=== PATIENT | male | born 1945 | race Caucasian/White ===

== ENCOUNTER 2021-05-06 12:00 | Inpatient (IN) ==
[2021-05-06] MEDS ORDERED: IOPAMIDOL 100 ML BOTTLE IV ONE (12:01)
[2021-05-06] MEDS ORDERED: 0.9 % SODIUM CHLORIDE 1,000 ML IV ONE (12:26)
--- NOTE | 2021-05-06 12:35 | Emergency Department Note ---
HPI General Chief complaint: Fall Stated complaint: fall Time Seen by Provider: 05/06/21 12:06 Source: patient and EMS Mode of arrival: EMS History of Present Illness HPI Narrative: Narrative: This patient presents by EMS with a complaint of fall with unknown downtime. Patient was found by his daughter to be on the floor in his home. It is thought that he fell sometime in the evening last night before it got dark. Patient is not quite sure. He does not recall if he became lightheaded and fell or if he tripped on something. He does not believe he struck his head and is not complaining of any head pain or headache but is not quite sure. Based on the patient being soiled and some discoloration to pressure points on his skin EMS reports it is likely he would sit down since last night. Patient has been known to have declining health over the last couple of months per his daughter. She recently moved back to the area from [place] 3 weeks ago due to his decline. She would typically visit him every 6 months and did note a few months ago on a visit that he had lost about 20 pounds. He also did not seem to be getting around the house very well in the house had fallen into a bit of clutter. She moved closer to help take care of him. She is not sure if he has prescription on occasion or if he has been taking them. She did look through the house with EMS but was unable to find any. She has not previously accompanied him to doctors visits due to living out of the area but is now available to do so, however he has not had any appointments. Patient has been resistant to discussions regarding assistance within the home or assisted living. Related Data Home Medications Medication Instructions Recorded Confirmed acetaminophen 500 mg tablet 500 mg PO .as needed tab 06/02/19 09/26/20 aspirin 81 mg tablet,delayed 81 mg PO QDAY 06/02/19 09/26/20 release Previous Rx's Medication Instructions Recorded chlorthalidone 25 mg tablet 12.5 mg PO QDAY #30 tab 08/29/20 atorvastatin 40 mg tablet 40 mg PO QDAY #30 tab 11/07/20 clopidogrel 75 mg tablet 75 mg PO QDAY #30 tab 11/07/20 lisinopril 20 mg tablet 20 mg PO QDAY #30 tab 12/07/20 Allergies Allergy/AdvReac Type Severity Reaction Status Date / Time No Known Drug Allergies Allergy Verified 12/07/20 09:48 Review of Systems ROS ROS Narrative: Narrative: Pertinent positives and negatives as noted in HPI. All other systems reviewed and negative. [facility] Narrative Patient History Narrative: Narrative: Medical/Surgical/Family History All Active Problems (Updated 05/06/21 @ 19:42 by Hayde Red PA-C) GABE (acute kidney injury) (Acute) Acute hypernatremia (Acute) Pleural effusion (Acute) Renal insufficiency (Acute) History of endarterectomy (Chronic ~2009) History of elbow surgery (Chronic) History of shoulder surgery (Chronic) CVA (cerebral vascular accident) (Chronic) Alcohol abuse (Chronic) Smoker (Chronic) Hypertension (Chronic) Hyperlipidemia (Chronic) Cardiac murmur (Chronic) Bbtiy-Shljcdcug-Tdozh (WPW) pattern (Chronic) Abdominal aortic aneurysm (Chronic) Anemia (Chronic) Thrombocytopenia (Chronic) Coronary artery disease (Chronic) Vitamin B 12 deficiency (Chronic) Calcified nodule (Chronic) Medical History (Updated 05/06/21 @ 19:42 by Hayde Red PA-C) Abdominal aortic aneurysm Alcohol abuse Anemia Calcified nodule Very mild manifestation of a calcified nodule that has embolized into this middle cerebral artery on the right side. It is partially occluding his anterior temporal artery, but not occlusive in his M2 vessels. Cardiac murmur Coronary artery disease CVA (cerebral vascular accident) Hyperlipidemia Hypertension Smoker Thrombocytopenia Vitamin B 12 deficiency Enasq-Tjnkyngls-Vqrhl (WPW) pattern Surgical History History of elbow surgery History of endarterectomy (~2009) Right History of shoulder surgery Right Family History Mother , Age 50 No problems noted. Father , Age 70 No problems noted. Social History Smoking Status: Current every day smoker Alcohol Intake Frequency: former alcohol drinker Substance Use: does not use Exam Narrative Narrative: Narrative: Vital signs noted General: mild distress. Cachectic. Skin: Warm. Dry. No rash. Normal color. Abrasions noted to the right shoulder and right hip with contusion. Contusion noted over the coccyx without abrasion or tissue breakdown. Eyes: PERRL. EOMI. Mouth: Membranes dry. Neck: Tenderness to palpation without obvious step-off or crepitus. Cardiovascular: Irregularly irregular rate with systolic murmur noted over the right superior chest wall. Generalized tenderness to palpation of the ribs and the chest. No crepitus or subcutaneous emphysema. Respiratory: No respiratory distress. Breath sounds equal. No wheezing/rales/rhonchi. Gastrointestinal: Abdomen firm. Diffuse tenderness. No distention. Hypoactive bowel sounds. Back: Normal inspection. Variable midline tenderness throughout the thoracic and lumbar spine. No step-offs or crepitus. There are contusions over the thoracic back without abrasions. Extremities: Various abrasions and pressure sores. Extremities are soiled with dirt and animal hair. Neurological: No focal neurological deficits observed. CN 2-12 intact. Alert. Oriented to person and place. Patient's baseline is typically without recall for date or year per his daughter. Course Course Course Narrative: IV established by EMS. Patient is medicated with normal saline for dehydration Labs ordered and reviewed Sodium is elevated and there is decreased renal function. Troponin is also elevated but is trending down from 0.05-0.04 this is likely secondary to GABE. CT of the brain without contrast is consistent with chronic changes with multiple infarcts. There are no acute changes noted. Cervical spine CT without contrast is without acute changes. CT of the chest, abdomen and pelvis with contrast is reported by radiology significant for bilateral pleural effusions with the right worse than the left. These do not appear to be secondary to trauma, more consistent with transudates. No additional acute findings are noted. Initially the patient is very resistant to staying in the emergency department o r being admitted to the hospital. After some time he does agree to come into the hospital for treatment of his hyponatremia, dehydration and monitoring of his pleural effusions. Patient discussed with the hospitalist service and is excepted. Vital Signs Vital signs: Vital Signs Temperature 98.1 F 05/06/21 12:00 Pulse Rate 84 05/06/21 12:00 Respiratory Rate 16 05/06/21 12:00 Blood Pressure 127/83 05/06/21 12:00 Pulse Oximetry (%) 96 05/06/21 12:00 Temperature 98.1 F 05/06/21 12:00 Pulse Rate 79 05/06/21 18:01 Respiratory Rate 15 05/06/21 18:46 Blood Pressure 137/98 05/06/21 19:01 Pulse Oximetry (%) 99 05/06/21 18:01 MDM MDM Narrative Medical decision making narrative: Narrative: Lab Data Result diagrams: 05/06/21 12:26 05/06/21 12:26 Labs: Lab Results 05/06/21 05/06/21 05/06/21 Range/Units 12:26 12:26 12:26 WBC 10.4 (4.5-11.0) K/mcL RBC 3.78 L (4.50-5.90) M/mcL Hgb 9.1 L (13.5-16.5) g/dL Hct 30.0 L (41.0-55.0) % POC Hct 30 L (41-55) % MCV 79.4 L (80.0-100.0) fL MCH 24.1 L (26.0-34.0) pg MCHC 30.3 L (31.0-36.0) g/dL RDW 20.8 H (11.5-14.5) % Plt Count 125 L (140-440) K/mcL MPV 11.4 H (7.4-10.4) fL Neut % (Auto) 86.3 H (38.0-78.0) % Lymph % (Auto) 8.6 L (15.0-49.0) % [place] % (Auto) 5.0 (1.0-12.0) % Eos % (Auto) 0 (0.0-7.0) % Baso % (Auto) 0.1 (0.0-2.0) % Lymph # (Auto) 0.89 L (1.50-4.80) K/mcL [place] # (Auto) 0.52 (0.10-0.90) K/mcL Eos # (Auto) 0 (0.00-0.70) K/mcL Baso # (Auto) 0.01 (0.00-0.20) K/mcL Absolute Neutrophils 8.97 H (1.80-8.00) K/mcL PT 22.1 H (11.9-14.5) sec INR 1.8 H (0.9-1.1) VBG Lactic Acid (0.5-2.0) mmol/L POC Sodium 150 H (133-145) mEq/L Sodium 149 H (133-145) mmol/L POC Potassium 4.0 (3.3-5.1) mEql/L Potassium 4.1 (3.3-5.1) mmol/L POC Chloride 120 H (96-108) mEq/L Chloride 113 H (96-108) mmol/L Carbon Dioxide 15 L (22-30) mmol/L POC Total CO2 16 L (22-30) mmol/L Anion Gap 21.0 H (8.0-16.0) POC BUN 63 H (6-20) mg/dL BUN 61 H (8-23) mg/dL Creatinine 1.7 H (0.7-1.2) mg/dL POC Creatinine 1.9 H (0.6-1.2) mg/dL GFR Calculation 39 Glucose 117 H (70-105) mg/dL POC Glucose 121 H (70-105) mg/dL Calcium 8.6 (8.6-10.4) mg/dL POC WB Ioniz Calcium 1.09 L (1.16-1.32) mmEq/L Total Bilirubin 1.7 H (0.1-1.0) mg/dL AST 140 H (<40) U/L ALT 198 H (<40) U/L Alkaline Phosphatase 89 (39-117) U/L Total Creatine Kinase (24-195) U/L CK-MB (CK-2) (<6.7) ng/mL Troponin T (<0.03) ng/mL Total Protein 5.8 L (5.9-8.4) gm/dL Albumin 3.8 (3.2-5.2) gm/dL Globulin 2.0 L (2.2-3.7) gm/dL Albumin/Globulin Ratio 1.9 (1.0-2.3) 05/06/21 05/06/21 05/06/21 Range/Units 12:26 12:26 12:26 WBC (4.5-11.0) K/mcL RBC (4.50-5.90) M/mcL Hgb (13.5-16.5) g/dL Hct (41.0-55.0) % POC Hct (41-55) % MCV (80.0-100.0) fL MCH (26.0-34.0) pg MCHC (31.0-36.0) g/dL RDW (11.5-14.5) % Plt Count (140-440) K/mcL MPV (7.4-10.4) fL Neut % (Auto) (38.0-78.0) % Lymph % (Auto) (15.0-49.0) % [place] % (Auto) (1.0-12.0) % Eos % (Auto) (0.0-7.0) % Baso % (Auto) (0.0-2.0) % Lymph # (Auto) (1.50-4.80) K/mcL [place] # (Auto) (0.10-0.90) K/mcL Eos # (Auto) (0.00-0.70) K/mcL Baso # (Auto) (0.00-0.20) K/mcL Absolute Neutrophils (1.80-8.00) K/mcL PT (11.9-14.5) sec INR (0.9-1.1) VBG Lactic Acid 2.4 H (0.5-2.0) mmol/L POC Sodium (133-145) mEq/L Sodium (133-145) mmol/L POC Potassium (3.3-5.1) mEql/L Potassium (3.3-5.1) mmol/L POC Chloride (96-108) mEq/L Chloride (96-108) mmol/L Carbon Dioxide (22-30) mmol/L POC Total CO2 (22-30) mmol/L Anion Gap (8.0-16.0) POC BUN (6-20) mg/dL BUN (8-23) mg/dL Creatinine (0.7-1.2) mg/dL POC Creatinine (0.6-1.2) mg/dL GFR Calculation Glucose (70-105) mg/dL POC Glucose (70-105) mg/dL Calcium (8.6-10.4) mg/dL POC WB Ioniz Calcium (1.16-1.32) mmEq/L Total Bilirubin (0.1-1.0) mg/dL AST (<40) U/L ALT (<40) U/L Alkaline Phosphatase (39-117) U/L Total Creatine Kinase 1737 H (24-195) U/L CK-MB (CK-2) 17.5 H (<6.7) ng/mL Troponin T 0.05 H* (<0.03) ng/mL Total Protein (5.9-8.4) gm/dL Albumin (3.2-5.2) gm/dL Globulin (2.2-3.7) gm/dL Albumin/Globulin Ratio (1.0-2.3) 05/06/21 05/06/21 Range/Units 16:19 17:58 WBC (4.5-11.0) K/mcL RBC (4.50-5.90) M/mcL Hgb (13.5-16.5) g/dL Hct (41.0-55.0) % POC Hct 32 L (41-55) % MCV (80.0-100.0) fL MCH (26.0-34.0) pg MCHC (31.0-36.0) g/dL RDW (11.5-14.5) % Plt Count (140-440) K/mcL MPV (7.4-10.4) fL Neut % (Auto) (38.0-78.0) % Lymph % (Auto) (15.0-49.0) % [place] % (Auto) (1.0-12.0) % Eos % (Auto) (0.0-7.0) % Baso % (Auto) (0.0-2.0) % Lymph # (Auto) (1.50-4.80) K/mcL [place] # (Auto) (0.10-0.90) K/mcL Eos # (Auto) (0.00-0.70) K/mcL Baso # (Auto) (0.00-0.20) K/mcL Absolute Neutrophils (1.80-8.00) K/mcL PT (11.9-14.5) sec INR (0.9-1.1) VBG Lactic Acid (0.5-2.0) mmol/L POC Sodium 150 H (133-145) mEq/L Sodium (133-145) mmol/L POC Potassium 3.7 (3.3-5.1) mEql/L Potassium (3.3-5.1) mmol/L POC Chloride 120 H (96-108) mEq/L Chloride (96-108) mmol/L Carbon Dioxide (22-30) mmol/L POC Total CO2 16 L (22-30) mmol/L Anion Gap (8.0-16.0) POC BUN 56 H (6-20) mg/dL BUN (8-23) mg/dL Creatinine (0.7-1.2) mg/dL POC Creatinine 1.7 H (0.6-1.2) mg/dL GFR Calculation Glucose (70-105) mg/dL POC Glucose 111 H (70-105) mg/dL Calcium (8.6-10.4) mg/dL POC WB Ioniz Calcium 1.08 L (1.16-1.32) mmEq/L Total Bilirubin (0.1-1.0) mg/dL AST (<40) U/L ALT (<40) U/L Alkaline Phosphatase (39-117) U/L Total Creatine Kinase (24-195) U/L CK-MB (CK-2) (<6.7) ng/mL Troponin T 0.04 H* (<0.03) ng/mL Total Protein (5.9-8.4) gm/dL Albumin (3.2-5.2) gm/dL Globulin (2.2-3.7) gm/dL Albumin/Globulin Ratio (1.0-2.3) ED POC Tests ED POC Tests: LORI - SARS Antigen Negative Discharge Plan Patient/Caregiver Discharge Instructions Pt seen by INSULATION MECHANIC/PA only: Yes Clinical Impression: GABE (acute kidney injury), Acute hypernatremia, Pleural effusion Patient Disposition: Xfer As Inpt ([facility]) Discharge Date/Time: 05/06/21 19:04
[2021-05-06 13:52] LABS: Basophils # (Auto) 0.01 K/mcL (0.00-0.20); Basophils % (Auto) 0.1 % (0.0-2.0); Eosinophils # (Auto) 0 K/mcL (0.00-0.70); Eosinophils % (Auto) 0 % (0.0-7.0); Hemoglobin 9.1 g/dL (13.5-16.5); Lymphocytes # (Auto) 0.89 K/mcL (1.50-4.80); Lymphocytes % (Auto) 8.6 % (15.0-49.0); Mean Cell Volume 79.4 fL (80.0-100.0); Mean Corpuscular HGB Conc 30.3 g/dL (31.0-36.0); Mean Platelet Volume 11.4 fL (7.4-10.4); Monocytes # (Auto) 0.52 K/mcL (0.10-0.90); Neutrophils % (Auto) 86.3 % (38.0-78.0); Platelet Count 125 K/mcL (140-440); RBC 3.78 M/mcL (4.50-5.90); Red Cell Distribution Width 20.8 % (11.5-14.5); WBC 10.4 K/mcL (4.5-11.0)
[2021-05-06 14:00] LABS: POC Blood Urea Nitrogen 63 mg/dL (6-20); POC CO2 16 mmol/L (22-30); POC Calcium, Ionized 1.09 mmEq/L (1.16-1.32); POC Chloride 120 mEq/L (96-108); POC Creatinine 1.9 mg/dL (0.6-1.2); POC Glucose, Random 121 mg/dL (70-105); POC Hematocrit 30 % (41-55); POC Sodium 150 mEq/L (133-145)
[2021-05-06 14:07] LABS: ALT/SGPT 198 U/L (<40); AST/SGOT 140 U/L (<40); Albumin 3.8 gm/dL (3.2-5.2); Albumin/Globulin Ratio 1.9 (1.0-2.3); Alkaline Phosphatase 89 U/L (39-117); Bilirubin,Total 1.7 mg/dL (0.1-1.0); Blood Urea Nitrogen 61 mg/dL (8-23); Calcium 8.6 mg/dL (8.6-10.4); Carbon Dioxide 15 mmol/L (22-30); Chloride 113 mmol/L (96-108); Glomerular Filtration Rate 39; Glucose 117 mg/dL (70-105); INR 1.8 (0.9-1.1); Prothrombin Time 22.1 sec (11.9-14.5)
[2021-05-06] MEDS ORDERED: fentaNYL 100 MCG/2 ML VIAL IV ONE (15:01)
--- NOTE | 2021-05-06 15:13 | Cat Scan Report ---
CLINICAL INFORMATION: Acute mental status change COMPARISON: None. TECHNIQUE: 2.5 mm helical slices were obtained in the skull base to vertex. Following reconstruction, axial reformatted images were reviewed at bone and parenchymal windows. The exam was performed using radiation dose optimization techniques including, but not limited to, automated exposure control, adjustment of the mA and/or kV according to patient size and use of iterative reconstruction technique. FINDINGS: The ventricles, sulci, fissures, and cisterns are symmetrically enlarged compatible with moderate atrophy-more than expected for age.. No extra-axial fluid collections are identified. Moderate patchy chronic ischemic changes in the cerebral white matter are also slightly more than expected for age. 9 mm remote lacunar infarct is seen in the left caudate nucleus-deep left frontal white matter. A few punctate remote lacunar infarcts seen in the basal ganglia. There is no evidence of hemorrhage, mass effect, or edema. Bone windows show no osseous abnormality. IMPRESSION: Moderate atrophy with chronic ischemic changes in the peripheral white matter slightly more than is typical for this age group. 9 mm lacunar infarct in the deep left frontal white matter/caudate nucleus region. Few punctate remote lacunar infarcts in the basal ganglia regions. No intracerebral hemorrhage or other acute finding. Moderate cerumen the left external auditory canal Interpreted and Authenticated by: Miki Dickerson 05/06/21
[2021-05-06 16:06] LABS: Creatine Kinase MB 17.5 ng/mL (<6.7)
--- NOTE | 2021-05-06 16:19 | Cat Scan Report ---
CLINICAL INFORMATION: Trauma-fall COMPARISON: None. TECHNIQUE: 0.625 mm helical slices were obtained from the skull base through the superior T2 end plate, and following reconstruction, 2.5 mm sagittal, coronal and axial reformations were then processed. The exam was reviewed at bone and soft tissue windows. The exam was performed using radiation dose optimization techniques including, but not limited to, automated exposure control, adjustment of the mA and/or kV according to patient size and use of iterative reconstruction technique. FINDINGS: 3 mm of C7 anterior subluxation due to degenerative facet disease noted. The remaining spine is normal in curvature and alignment. No fracture identified. The cervical cord is normal in contour and caliber without hemorrhage or other abnormality. Heavy atherosclerotic calcification seen in the left carotid bifurcation. Soft tissues otherwise normal. The C2-3 disc level is normal. At C3-4, mild broad disc spur complex minimally impinges the anterior thecal sac At C4-5, moderate broad disc spur complex and facet arthropathy result in mild central canal narrowing. The IV foramen are normal width At C5-6, mild broad disc spur complex left-sided asymmetry results in mild left IV foraminal narrowing and mild central canal narrowing. Mild bilateral facet arthropathy noted. At C6-7, mild broad disc spur complex left-sided asymmetry results in mild left IV foraminal and central canal canal doses. There is mild facet arthropathy. At C7-T1, mild broad disc protrusion and grade 1 spondylolisthesis results in moderate bilateral IV foraminal narrowing. There is slight impingement of the exiting exiting C8 nerve roots. IMPRESSION: 1. No fracture or other acute posttraumatic change. 2. Multilevel degeneration-as described. 3. Heavy calcification in the left carotid bifurcation. Suggest carotid Doppler study to evaluate for stenosis Interpreted and Authenticated by: Miki Dickerson 05/06/21
--- NOTE | 2021-05-06 16:33 | Cat Scan Report ---
CLINICAL INFORMATION: Trauma COMPARISON: None. TECHNIQUE: Enteric contrast was utilized. 80 cc of Isovue-370 were injected intravenously, and 50 seconds later 2.5 mm helical slices were obtained from the lung apices through the subtrochanteric regions of the femurs. Following reconstruction, 2.5 mm sagittal, coronal and axial reformatted images were processed and reviewed at multiple windows and levels. 7 mm MIP reconstructions were obtained through the lungs to optimize nodule detection.The exam was performed using radiation dose optimization techniques including, but not limited to, automated exposure control, adjustment of the mA and/or kV according to patient size and use of iterative reconstruction technique. FINDINGS: Pulmonary parenchymal windows show moderate simple right pleural effusion. No evidence of hemorrhage. There is subsegmental compressive atelectasis of the posterior right upper, middle and lower lobes. Small left pleural effusion noted. The lungs are, otherwise, clear. No pneumothorax following trauma. The mediastinal windows show the heart is moderately enlarged with heavy calcific plaque in the coronary arteries. The thoracic aorta is normal diameter with diffuse intimal thickening. There is no mediastinal hemorrhage or air following trauma. The central pulmonary arteries are markedly enlarged: the main pulmonary diameter is 4.4 cm compatible pulmonary hypertension. There is no adenopathy in the mediastinal, hilar or axillary regions. The esophagus is grossly normal. Abdominal images show a few tiny stones layering dependently within the gallbladder body. Gallbladder and bile ducts are, otherwise, normal: CBD is 5 mm. The liver, spleen, both adrenal glands are normal in size configuration and attenuation without focal lesion. Nonobstructing stones are seen in the calyces of both kidneys: 6 mm mid calyx right kidney, two stones inferior calyces the right kidney less than 2 mm and 8mm nonobstructing stone within an inferior calyx of the left kidney. No obstructing stone or hydronephrosis. Both kidneys are lower limits of normal in size the right is 9 cm in length and the left is 9.4 cm in length. Aortobiiliac endovascular graft successfully stents a 5 cm diameter fusiform infrarenal abdominal aortic aneurysm. The aneurysm is thrombosed around the graft as expected. No evidence of endoleak. Stents in both renal arteries are difficult to assess due to beam hardening artifact from the metal struts.. The kidneys are perfused hence they are at least partially patent. Pelvic images show prostate, seminal vesicles urinary bladder are normal. The stomach, small large bowel are grossly normal. Bone windows show no fractures or other osseous abnormality IMPRESSION: 1. No acute posttraumatic change throughout the chest, abdomen or pelvis. 2. Moderate right and small left simple pleural effusions. Right pleural effusion results in subsegmental compressive atelectasis of the posterior right lower middle and lower lobes. These are related to trauma and likely represent residua from a prior episode of CHF. There is no peripheral vascular congestion or edema to suggest active CHF 3. Marked enlargement of the central pulmonary arteries compatible pulmonary hypertension. Etiology is unknown. It may reflect cor pulmonale. 4. Abdominal biiliac endovascular graft successfully stented a thrombosed infrarenal abdominal aortic aneurysm. No evidence of graft endoleak. 5. Nonobstructing stones within the calyces of both kidneys, but no evidence of obstructing stone or hydronephrosis. Both kidneys of the lower limits of normal in size. 6. Cholelithiasis. Gallbladder and bile ducts otherwise normal. Interpreted and Authenticated by: Miki Dickerson 05/06/21
[2021-05-06] MEDS ORDERED: DEXTROSE 5% IN WATER 1,000 ML IV SCH (17:45)
--- NOTE | 2021-05-06 18:00 | Internal Med History&Physical ---
HPI History of Present Illness Patient information: Note initiated : 05/06/21 at 5:51 pm Service Date, if different from initiated Date: [] Patient: Francis Tracey a 76 y/o M admitted on for fall. Chief Complaint: [] History of present illness: Mr. Tracey is a 76 year old M Patient found down at home on the floor by his daughter today 1030. It is thought that he been lying on the floor since last night. He was last seen by his neighbor on the por at 7 PM. He does not recall falling the surrounding events did not feel ill recently feels in his normal state of health. Does not recall passing out or tripping or anything like that. Given the ED showed normal white blood cell count with a hemoglobin of 9.1. Platelets mildly low at 125. Chemistry showed a sodium of 149 chloride 113 bicarb of 15. BUN 61 creatinine 1.7. INR 1.8. No known history of liver disease although is used to drink quite a bit. CPK was elevated and lactate mildly elevated. Transaminitis mild. CT brain showed old infarcts. Patient lives alone. Per daughter he has lost weight and been declining over the last several months. He has moved from [place] recently to help care for him given his decline. He does not recall if he has been taking his medications or not and likely has not been taking per daughter. Review of Systems: Pertinent positives as above. Denies headache/fever/chills/nausea/vomiting/chest or abdominal pain/cough/dyspnea/diarrhea. Many 10 point review of system reviewed negative PFSH PFSH All Active Problems Renal insufficiency (Acute) History of endarterectomy (Chronic ~2009) History of elbow surgery (Chronic) History of shoulder surgery (Chronic) CVA (cerebral vascular accident) (Chronic) Alcohol abuse (Chronic) Smoker (Chronic) Hypertension (Chronic) Hyperlipidemia (Chronic) Cardiac murmur (Chronic) Nxzas-Gyflovjdu-Suyjy (WPW) pattern (Chronic) Abdominal aortic aneurysm (Chronic) Anemia (Chronic) Thrombocytopenia (Chronic) Coronary artery disease (Chronic) Vitamin B 12 deficiency (Chronic) Calcified nodule (Chronic) Medical History Abdominal aortic aneurysm Alcohol abuse Anemia Calcified nodule Very mild manifestation of a calcified nodule that has embolized into this middle cerebral artery on the right side. It is partially occluding his anterior temporal artery, but not occlusive in his M2 vessels. Cardiac murmur Coronary artery disease CVA (cerebral vascular accident) Hyperlipidemia Hypertension Smoker Thrombocytopenia Vitamin B 12 deficiency Mekuu-Esxfqoafo-Rzfvi (WPW) pattern Surgical History History of elbow surgery History of endarterectomy (~2009) Right History of shoulder surgery Right Family History Mother , Age 50 No problems noted. Father , Age 70 No problems noted. Social History (Updated 05/06/21 @ 18:03 by Etienne Machado DO) marital status: alcohol intake frequency: former alcohol drinker substance use type: does not use additional history: Smokes 1 pack/day MEDS/ALLERGIES Home Medications and Allergies Home Medications Medication Instructions Recorded Confirmed Type acetaminophen 500 mg tablet 500 mg PO .as needed tab 06/02/19 09/26/20 History aspirin 81 mg tablet,delayed 81 mg PO QDAY 06/02/19 09/26/20 History release chlorthalidone 25 mg tablet 12.5 mg PO QDAY #30 tab 08/29/20 09/26/20 Rx atorvastatin 40 mg tablet 40 mg PO QDAY #30 tab 11/07/20 Rx clopidogrel 75 mg tablet 75 mg PO QDAY #30 tab 11/07/20 Rx lisinopril 20 mg tablet 20 mg PO QDAY #30 tab 12/07/20 Rx Allergies Allergy/AdvReac Type Severity Reaction Status Date / Time No Known Drug Allergies Allergy Verified 09/26/20 09:48 EXAM Constitutional Vitals: Temp Pulse Resp BP Pulse Ox 98.1 F 77 20 136/87 96 05/06/21 12:00 05/06/21 15:31 05/06/21 17:46 05/06/21 17:46 05/06/21 15:31 Exam: General: Alert, Awake, No acute Distress, disheveled, cachectic Eyes/N/T: EOMI, PERRL, dry MM Head/Neck: neck supple, normocephalic atraumatic CV: RRR, 3/6 SM , normal s1/s2 Pulm: Clear b/l, no wheezing/rhonchi/rales Abd: soft, nontender, +BS x4 Ext: no clubbing/cyanosis/edema Neuro: Alert, no focal deficits, moves all extremities, CN 2-12 grossly intact, symmetrical strength b/l upper/lower, sensations intact b/l upper/lower Skin: warm/dry DATA Data Completed and Pending Labs: Labs from last 24 hours 05/06/21 05/06/21 05/06/21 16:19 12:26 12:26 WBC RBC Hgb Hct POC Hct MCV MCH MCHC RDW Plt Count MPV Neut % (Auto) Lymph % (Auto) Dade % (Auto) Eos % (Auto) Baso % (Auto) Lymph # (Auto) Dade # (Auto) Eos # (Auto) Baso # (Auto) Absolute Neutrophils PT INR VBG Lactic Acid POC Sodium Sodium POC Potassium Potassium POC Chloride Chloride Carbon Dioxide POC Total CO2 Anion Gap POC BUN BUN Creatinine POC Creatinine GFR Calculation Glucose POC Glucose Calcium POC WB Ioniz Calcium Total Bilirubin AST ALT Alkaline Phosphatase Total Creatine Kinase 1737 H CK-MB (CK-2) 17.5 H Troponin T 0.04 H* 0.05 H* Total Protein Albumin Globulin Albumin/Globulin Ratio 05/06/21 05/06/21 05/06/21 12:26 12:26 12:26 WBC RBC Hgb Hct POC Hct 30 L MCV MCH MCHC RDW Plt Count MPV Neut % (Auto) Lymph % (Auto) Dade % (Auto) Eos % (Auto) Baso % (Auto) Lymph # (Auto) Dade # (Auto) Eos # (Auto) Baso # (Auto) Absolute Neutrophils PT 22.1 H INR 1.8 H VBG Lactic Acid 2.4 H POC Sodium 150 H Sodium 149 H POC Potassium 4.0 Potassium 4.1 POC Chloride 120 H Chloride 113 H Carbon Dioxide 15 L POC Total CO2 16 L Anion Gap 21.0 H POC BUN 63 H BUN 61 H Creatinine 1.7 H POC Creatinine 1.9 H GFR Calculation 39 Glucose 117 H POC Glucose 121 H Calcium 8.6 POC WB Ioniz Calcium 1.09 L Total Bilirubin 1.7 H AST 140 H ALT 198 H Alkaline Phosphatase 89 Total Creatine Kinase CK-MB (CK-2) Troponin T Total Protein 5.8 L Albumin 3.8 Globulin 2.0 L Albumin/Globulin Ratio 1.9 05/06/21 12:26 WBC 10.4 RBC 3.78 L Hgb 9.1 L Hct 30.0 L POC Hct MCV 79.4 L MCH 24.1 L MCHC 30.3 L RDW 20.8 H Plt Count 125 L MPV 11.4 H Neut % (Auto) 86.3 H Lymph % (Auto) 8.6 L Dade % (Auto) 5.0 Eos % (Auto) 0 Baso % (Auto) 0.1 Lymph # (Auto) 0.89 L Dade # (Auto) 0.52 Eos # (Auto) 0 Baso # (Auto) 0.01 Absolute Neutrophils 8.97 H PT INR VBG Lactic Acid POC Sodium Sodium POC Potassium Potassium POC Chloride Chloride Carbon Dioxide POC Total CO2 Anion Gap POC BUN BUN Creatinine POC Creatinine GFR Calculation Glucose POC Glucose Calcium POC WB Ioniz Calcium Total Bilirubin AST ALT Alkaline Phosphatase Total Creatine Kinase CK-MB (CK-2) Troponin T Total Protein Albumin Globulin Albumin/Globulin Ratio A/P Narrative A/P Narrative: A: *Fall/generalized weakness/deconditioning/self-care deficits: *Dehydration w/Hypernatremia: *Rhabdomyolysis: 2/2 fall and downtime *GABE on CKD: 2/2 above *Med acidosis: 2/2 above *Transaminitis, mild: *?liver dz suspected: h/o etoh abuse, thrombocytopenia/elevated INR/hyperbilirubinemia *PVD: Supposed to be on aspirin/statin/Plavix *h/o CVA, no residual deficits per patient: *Tobacco abuse: *HTN: supposed to be on Lisinopril and chlorthalidone * P: -D5W, f/u sodium -monitor uop/renal fxn -pending UA pH -liver u/s -clarify home meds -Smoking cessation counseling -PT/OT -CM for placement -ppx: lovenox Time Spent With Patient Time: Total time spent is greater than 50% in coordination of care (as documented) at patient's floor/unit and/or counseling patient:
[2021-05-06 18:06] LABS: POC Blood Urea Nitrogen 56 mg/dL (6-20); POC CO2 16 mmol/L (22-30); POC Calcium, Ionized 1.08 mmEq/L (1.16-1.32); POC Chloride 120 mEq/L (96-108); POC Creatinine 1.7 mg/dL (0.6-1.2); POC Glucose, Random 111 mg/dL (70-105); POC Hematocrit 32 % (41-55); POC Potassium 3.7 mEql/L (3.3-5.1); POC Sodium 150 mEq/L (133-145)
[2021-05-06] MEDS ORDERED: IPRATROPIUM/ALBUTEROL 3 ML AMPUL.NEB NEB PRN (19:06)
[2021-05-06] MEDS ORDERED: ACETAMINOPHEN 325 MG TABLET PO PRN (19:06)
[2021-05-06] MEDS ORDERED: POLYETHYLENE GLYCOL 3350 17 GM PACKET PO PRN (19:06)
[2021-05-06] MEDS ORDERED: POTASSIUM CHLORIDE 20 MEQ TABLET PO PRN ×2 (19:06)
[2021-05-06] MEDS ORDERED: ONDANSETRON 4 MG/2 ML VIAL IV PRN (19:06)
[2021-05-06] MEDS ORDERED: MAGNESIUM SULFATE 2 GM/50 ML BAG IV PRN (19:06)
[2021-05-06] MEDS ORDERED: POTASSIUM CHLORIDE 40 MEQ in DEXTROSE 5% IN WATER 500 ML IV PRN (19:06)
[2021-05-06] MEDS ORDERED: SENNOSIDES 1 TABLET PO PRN (19:06)
[2021-05-06] MEDS ORDERED: LABETALOL 5 MG/ML ML IV PRN (19:45)
[2021-05-06] MEDS: DEXTROSE 5% IN WATER 1,000 ML IV SCH (19:59)
[2021-05-06] MEDS: ATORVASTATIN 40 MG TABLET PO SCH (20:29)
[2021-05-06] MEDS: CLOPIDOGREL 75 MG TABLET PO SCH (20:29)
[2021-05-06] MEDS: 0.9 % SODIUM CHLORIDE 10 ML SYRINGE IV SCH (20:29)
[2021-05-06] MEDS: DOCUSATE SODIUM 100 MG CAPSULE PO SCH (20:29)
[2021-05-06 21:24] LABS: POC Calcium, Ionized 1.09 mmEq/L (1.16-1.32); POC Creatinine 1.7 mg/dL (0.6-1.2)
[2021-05-06 21:38] LABS: Appearance,Urine CLEAR (Clear); Bilirubin,Urine Negative (Negative); Color,Urine AMBER; Culture Indicated,Urine No; Glucose,Urine (UA) Negative (Negative); Ketones,Urine 5 mg/dL (Negative); Leukocyte Esterase,Urine Negative /ug (Negative); Mucus,Urine MOD /hpf; Nitrate,Urine Negative (Negative); Protein,Urine 30 mg/dL (Negative); Specific Gravity,Urine 1.045 (1.000-1.035); Urine Blood 0.03 mg/dL (Negative); Urine RBC 0 /hpf (0-3); Urine Squamous Epithelial Cell < 1 /hpf (0-4); Urine WBC 2 /hpf (0-4)
--- NOTE | 2021-05-06 22:11 | EKG ---
[facility] Test Date: 2021-05-06 Pat Name: Francis Tracey Department: ED Room: Gender: Male Pre Billing Specialist: : [id number] Requested By: Hayde Red Order Number: [id number] Reading MD: Regino Rivera M.D. Measurements Intervals [place] Rate: 82 P: 76 NV: 151 QRS: 58 QRSD: 96 T: 266 QT: 384 QTc: 449 Interpretive Statements SINUS RHYTHM PROBABLE LEFT VENTRICULAR HYPERTROPHY ABNORMAL T, CONSIDER ISCHEMIA, DIFFUSE LEADS NO PRIOR TRACING FOR COMPARISON ABNORMAL ECG Electronically Signed On 05-06-2021 22:11:16 PDT by Regino Rivera M.D. /store/[email or web address]/[id number]
[2021-05-07] MEDS: DEXTROSE 5% IN WATER 1,000 ML IV SCH (03:16)
[2021-05-07] MEDS: 0.9 % SODIUM CHLORIDE 10 ML SYRINGE IV SCH ×3 (04:28→21:06)
[2021-05-07 07:34] LABS: Basophils # (Auto) 0.01 K/mcL (0.00-0.20); Basophils % (Auto) 0.1 % (0.0-2.0); Eosinophils # (Auto) 0.03 K/mcL (0.00-0.70); Eosinophils % (Auto) 0.3 % (0.0-7.0); Hematocrit 30.6 % (41.0-55.0); Hemoglobin 8.9 g/dL (13.5-16.5); Lymphocytes % (Auto) 11.3 % (15.0-49.0); Mean Cell Volume 83.4 fL (80.0-100.0); Mean Corpuscular HGB Conc 29.1 g/dL (31.0-36.0); Monocytes # (Auto) 0.57 K/mcL (0.10-0.90); Monocytes % (Auto) 5.9 % (1.0-12.0); Neutrophils % (Auto) 82.4 % (38.0-78.0); Platelet Count 100 K/mcL (140-440); RBC 3.67 M/mcL (4.50-5.90); WBC 9.7 K/mcL (4.5-11.0)
[2021-05-07 07:40] LABS: ALT/SGPT 144 U/L (<40); AST/SGOT 79 U/L (<40); Albumin/Globulin Ratio 1.4 (1.0-2.3); Alkaline Phosphatase 76 U/L (39-117); Bilirubin,Direct 0.8 mg/dL (<0.3); Bilirubin,Total 1.4 mg/dL (0.1-1.0); Blood Urea Nitrogen 55 mg/dL (8-23); Carbon Dioxide 17 mmol/L (22-30); Chloride 111 mmol/L (96-108); Globulin 2.2 gm/dL (2.2-3.7); Glomerular Filtration Rate 54; Glucose 169 mg/dL (70-105); Lactate Dehydrogenase 362 U/L (135-225); Phosphorous 2.8 mg/dL (2.5-4.5); Triglycerides 114 mg/dL (<150); Uric Acid 11.2 mg/dL (2.5-8.0)
--- NOTE | 2021-05-07 08:23 | Internal Med Progress Note ---
SUBJECTIVE Subjective Patient information: Note initiated : 05/07/21 at 8:20 am Service Date, if different from initiated Date: [] Patient: Francis Tracey a 76 y/o M admitted on 05/06/21 for fall. Chief Complaint: [] Interval history: History of present illness: Mr. Tracey is a 76 year old M Patient found down at home on the floor by his daughter today 1030. It is thought that he been lying on the floor since last night. He was last seen by his neighbor on the porch at 7 PM. He does not recall falling the surrounding events did not feel ill recently feels in his normal state of health. Does not recall passing out or tripping or anything like that. Given the ED showed normal white blood cell count with a hemoglobin of 9.1. Platelets mildly low at 125. Chemistry showed a sodium of 149 chloride 113 bicarb of 15. BUN 61 creatinine 1.7. INR 1.8. No known history of liver disease although is used to drink quite a bit. CPK was elevated and lactate mildly elevated. Transaminitis mild. CT brain showed old infarcts. Patient lives alone. Per daughter he has lost weight and been declining over the last several months. He has moved from [place] recently to help care for him given his decline. He does not recall if he has been taking his medications or not and likely has not been taking per daughter. 05/07 No overnight event or new complaints. Patient feeling all right. Sodium improved creatinine improved. Review of Systems: denies headache/fever/chills/nausea/vomiting/chest or abdominal pain/cough/dyspnea/diarrhea. Otherwise see above. Constitutional Vitals: Vital Signs Temp Pulse Resp BP Pulse Ox 97 F 60 16 103/51 100 05/07/21 07:49 05/07/21 07:49 05/07/21 07:49 05/07/21 07:49 05/07/21 07:49 Period Temp Pulse Resp BP Sys/Rene Pulse Ox Last 24 Hr 96.5 F-98.1 F 60-92 11-26 103-146/51-98 93-100 Intake and Output 05/06/21 05/07/21 05/07/21 21:59 05:59 13:59 Intake Total 131 1200 1869 Output Total 250 250 Balance -284 501 2938 Weight 48.943 kg Intake & Output: Intake & Output 05/06/21 05/07/21 05/07/21 21:59 05:59 13:59 Intake Total 131 1200 1869 Output Total 250 250 Balance -675 671 0772 Weight 48.943 kg Intake: IV 131 1000 1869 Dextrose 5% in Water 1,000 ml @ 131 1000 1869 125 mls/hr IV .Q8H DAYSI Rx#: [id number] Oral 200 0 Output: Void Amount 250 250 Other: Urine Appearance Clear Urine Color Dark Valentine Dark Valentine # Bowel Movements 0 Exam: General: Alert, Awake, No acute Distress, disheveled, cachectic Eyes/N/T: EOMI, Head/Neck: neck supple, CV: RRR, 3/6 SM , Pulm: Clear b/l, no wheezing/rhonchi/rales Abd: soft, nontender, +BS x4 Ext: no clubbing/cyanosis/edema Neuro: Alert, no focal deficits, moves all extremities, Skin: warm/dry OBJ DATA Labs CBC & Chem 7: 05/07/21 06:36 05/07/21 06:36 Labs: Abnormal Lab Results 05/07/21 05/07/21 05/06/21 06:36 06:36 21:10 RBC 3.67 L Hgb 8.9 L Hct 30.6 L POC Hct 32 L MCV MCH 24.3 L MCHC 29.1 L RDW 21.0 H Plt Count 100 L MPV Neut % (Auto) 82.4 H Lymph % (Auto) 11.3 L Lymph # (Auto) 1.10 L Absolute Neutrophils 8.01 H PT INR VBG Lactic Acid POC Sodium 149 H Sodium POC Chloride 117 H Chloride 111 H Carbon Dioxide 17 L POC Total CO2 16 L Anion Gap POC BUN 57 H BUN 55 H Creatinine 1.3 H POC Creatinine 1.7 H Glucose 169 H POC Glucose 162 H Uric Acid 11.2 H Calcium 8.0 L POC WB Ioniz Calcium 1.09 L Total Bilirubin 1.4 H Direct Bilirubin 0.8 H AST 79 H ALT 144 H Lactate Dehydrogenase 362 H Total Creatine Kinase CK-MB (CK-2) Troponin T Total Protein 5.2 L Albumin 3.0 L Globulin Urine Protein Urine Ketones Urine Urobilinogen Urine Mucus 05/06/21 05/06/21 05/06/21 20:21 17:58 16:19 RBC Hgb Hct POC Hct 32 L MCV MCH MCHC RDW Plt Count MPV Neut % (Auto) Lymph % (Auto) Lymph # (Auto) Absolute Neutrophils PT INR VBG Lactic Acid POC Sodium 150 H Sodium POC Chloride 120 H Chloride Carbon Dioxide POC Total CO2 16 L Anion Gap POC BUN 56 H BUN Creatinine POC Creatinine 1.7 H Glucose POC Glucose 111 H Uric Acid Calcium POC WB Ioniz Calcium 1.08 L Total Bilirubin Direct Bilirubin AST ALT Lactate Dehydrogenase Total Creatine Kinase CK-MB (CK-2) Troponin T 0.04 H* Total Protein Albumin Globulin Urine Protein 30 A Urine Ketones 5 A Urine Urobilinogen 4.0 A Urine Mucus Mod A 05/06/21 05/06/21 05/06/21 12:26 12:26 12:26 RBC Hgb Hct POC Hct MCV MCH MCHC RDW Plt Count MPV Neut % (Auto) Lymph % (Auto) Lymph # (Auto) Absolute Neutrophils PT INR VBG Lactic Acid 2.4 H POC Sodium Sodium POC Chloride Chloride Carbon Dioxide POC Total CO2 Anion Gap POC BUN BUN Creatinine POC Creatinine Glucose POC Glucose Uric Acid Calcium POC WB Ioniz Calcium Total Bilirubin Direct Bilirubin AST ALT Lactate Dehydrogenase Total Creatine Kinase 1737 H CK-MB (CK-2) 17.5 H Troponin T 0.05 H* Total Protein Albumin Globulin Urine Protein Urine Ketones Urine Urobilinogen Urine Mucus 05/06/21 05/06/21 05/06/21 12:26 12:26 12:26 RBC 3.78 L Hgb 9.1 L Hct 30.0 L POC Hct 30 L MCV 79.4 L MCH 24.1 L MCHC 30.3 L RDW 20.8 H Plt Count 125 L MPV 11.4 H Neut % (Auto) 86.3 H Lymph % (Auto) 8.6 L Lymph # (Auto) 0.89 L Absolute Neutrophils 8.97 H PT 22.1 H INR 1.8 H VBG Lactic Acid POC Sodium 150 H Sodium 149 H POC Chloride 120 H Chloride 113 H Carbon Dioxide 15 L POC Total CO2 16 L Anion Gap 21.0 H POC BUN 63 H BUN 61 H Creatinine 1.7 H POC Creatinine 1.9 H Glucose 117 H POC Glucose 121 H Uric Acid Calcium POC WB Ioniz Calcium 1.09 L Total Bilirubin 1.7 H Direct Bilirubin AST 140 H ALT 198 H Lactate Dehydrogenase Total Creatine Kinase CK-MB (CK-2) Troponin T Total Protein 5.8 L Albumin Globulin 2.0 L Urine Protein Urine Ketones Urine Urobilinogen Urine Mucus Meds: Medications Acetaminophen (Acetaminophen 325 Mg Tablet) 650 mg PO Q6HP PRN PRN Reason: PAIN/FEVER > 101 Albuterol/Ipratropium (Ipratropium/Albuterol 3 Ml Ampul.Neb) 3 ml NEB Q4HP PRN PRN Reason: Shortness Of Breath Atorvastatin Calcium (Atorvastatin 40 Mg Tablet) 40 mg PO HS [facility] Last Admin: 05/06/21 20:29 Dose: 40 mg Documented by: Clopidogrel Bisulfate (Clopidogrel 75 Mg Tablet) 75 mg PO DAILY [facility] Last Admin: 05/06/21 20:29 Dose: 75 mg Documented by: Docusate Sodium (Docusate Sodium 100 Mg Capsule) 100 mg PO BID [facility] Last Admin: 05/06/21 20:29 Dose: 100 mg Documented by: Enoxaparin Sodium (Enoxaparin 30 Mg/0.3 Ml Syringe) 30 mg SQ DAILY [facility] Dextrose (Dextrose 5% In Water) 1,000 mls @ 125 mls/hr IV .Q8H [facility] Stop: 05/07/21 09:44 Last Infusion: 05/07/21 06:33 Dose: Infused Documented by: Potassium Chloride 40 meq/ (Dextrose) 520 mls @ 130 mls/hr IV UD PRN PRN Reason: Potassium < 3 Magnesium Sulfate (Magnesium Sulfate) 2 gm in 50 mls @ 50 mls/hr IV UD PRN PRN Reason: Magnesium </= 1.6 Labetalol HCl (Labetalol 5 Mg/Ml Ml) 0 mg IV Q2HP PRN PRN Reason: Hypertension Ondansetron HCl (Ondansetron 4 Mg/2 Ml Vial) 4 mg IV Q4HP PRN PRN Reason: Nausea And Vomiting Polyethylene Glycol (Polyethylene Glycol 3350 17 Gm Packet) 17 gm PO DAILYP PRN PRN Reason: Constipation Potassium Chloride (Potassium Chloride 20 Meq Tablet) 40 meq PO UD PRN PRN Reason: Potssium is 3-3.5 Potassium Chloride (Potassium Chloride 20 Meq Tablet) 40 meq PO UD PRN PRN Reason: Potassium < 3 Senna (Sennosides 1 Tablet) 2 tab PO DAILYP PRN PRN Reason: Constipation Sodium Chloride (0.9 % Sodium Chloride 10 Ml Syringe) 10 ml IV Q8 [facility] Last Admin: 05/07/21 04:28 Dose: Not Given Documented by: A/P Narrative A/P Narrative: A: *Fall/generalized weakness/deconditioning/self-care deficits: *Dehydration w/Hypernatremia: -improved *Rhabdomyolysis: 2/2 fall and downtime -improving *GABE on CKD: 2/2 above -Improving *Med acidosis: 2/2 above -improving *Transaminitis, mild: improving *?liver dz suspected: h/o etoh abuse, thrombocytopenia/elevated INR/hyperbilirubinemia *PVD: Supposed to be on aspirin/statin/Plavix *h/o CVA, no residual deficits per patient: *suspect some cognitive impairment from previous CVA's/etoh *Tobacco abuse: *HTN: supposed to be on Lisinopril and chlorthalidone * P: -IVF -monitor uop/renal fxn -pending UA pH -echo, chest u/s for potential pleural fluid diagnostic eval -liver u/s -clarify home meds, cont plavix/statin while awaiting meds clarify -Smoking cessation counseling -PT/OT -CM for placement -ppx: lovenox Time Spent With Patient Time: Total time spent is greater than 50% in coordination of care (as documented) at patient's floor/unit and/or counseling patient: QUALITY VTE Deep Vein Thrombosis/Pulmonary Embolism Present on Admission: No
[2021-05-07] MEDS ORDERED: SODIUM BICARBONATE VIAL 150 MEQ in DEXTROSE 5% IN WATER 850 ML IV SCH (09:00)
[2021-05-07] MEDS: DOCUSATE SODIUM 100 MG CAPSULE PO SCH ×2 (10:22→21:40)
[2021-05-07] MEDS: ENOXAPARIN 30 MG/0.3 ML SYRINGE SQ SCH (10:22)
[2021-05-07] MEDS: CLOPIDOGREL 75 MG TABLET PO SCH (10:22)
--- NOTE | 2021-05-07 12:49 | Discharge Summary ---
Discharge Provider Provider Patient information: Note initiated : 05/07/21 at 12:45 pm Service Date, if different from initiated Date: [] Patient: Francis Tracey 76 y/o M admitted on 05/06/21 for fall. Chief Complaint: [] Date of admission: 05/06/21 19:04 Discharge date: 05/08/21 Primary care physician: THAD Khan Consults: 05/06/21 Consult to Physician [CONS] Stat Comment: Consulting Provider: Etienne Machado Reason For Exam: Physician to Consult Discharge Meds Discharge Medications Home Medications acetaminophen 500 mg tablet 500 mg PO .as needed tab 06/02/19 [History Confirmed 05/07/21 Last Taken Unknown] aspirin 81 mg tablet,delayed release 81 mg PO QDAY 06/02/19 [History Confirmed 05/07/21 Last Taken Unknown] atorvastatin 40 mg tablet 40 mg PO QDAY #30 tab 11/07/20 [Rx Confirmed 05/07/21 Last Taken Unknown] clopidogrel 75 mg tablet 75 mg PO QDAY #30 tab 11/07/20 [Rx Confirmed 05/07/21 Last Taken Unknown] lisinopril 10 mg PO QDAY #30 tab 05/07/21 [Rx Last Taken Unknown] COURSE Hospital Course Hospital course: Interval history: History of present illness: Mr. Tracey is a 76 year old M Patient found down at home on the floor by his daughter today 1030. It is thought that he been lying on the floor since last night. He was last seen [facility] at 7 PM. He does not recall falling the surrounding events did not feel ill recently feels in his normal state of health. Does not recall passing out or tripping or anything like that. Given the ED showed normal white blood cell count with a hemoglobin of 9.1. Platelets mildly low at 125. Chemistry showed a sodium of 149 chloride 113 bicarb of 15. BUN 61 creatinine 1.7. INR 1.8. No known history of liver disease although is used to drink quite a bit. CPK was elevated and lactate mildly elevated. Transaminitis mild. CT brain showed old infarcts. Patient lives alone. Per daughter he has lost weight and been declining over the last several months. He has moved from [place] recently to help care for him given his decline. He does not recall if he has been taking his medications or not and likely has not been taking per daughter. 05/07 No overnight event or new complaints. Patient feeling all right. Sodium improved creatinine improved. 05/08 Patient/family refused half-way facility, patient will go home with daughter. Patient at high risk for readmission given comorbidities and decline of late and medication noncompliance A: *Fall/generalized weakness/deconditioning/self-care deficits: *Dehydration w/Hypernatremia: -resolved *Rhabdomyolysis: 2/2 fall and downtime -improving *GABE on CKD: 2/2 above -Improved *Med acidosis: 2/2 above -improving *Transaminitis, mild: improving -liver u/s with fatty liver *?liver dz suspected: h/o etoh abuse, thrombocytopenia/elevated INR/hyperbilirubinemia *PVD: Supposed to be on aspirin/statin/Plavix *h/o CVA, no residual deficits per patient: *Dementia and likely from previous CVA's/etoh -CT brain with moderate atrophy and chronic ischemic changes and old infarcts *Tobacco abuse: *HTN: supposed to be on Lisinopril and chlorthalidone * Discharge diagnosis: Fall generalized weakness deconditioning self-care deficits dehydration hyp Secondary discharge diagnosis: Dehydration with hyponatremia rhabdomyolysis acute on chronic kidney disease metabolic acidosis transaminitis likely liver disease peripheral vascular disease history of stroke suspect some cognitive impairment from strokes and alcohol use tobacco abuse hypertension Time Spent with Patient Time attestation: Total time spent providing and/or coordinating discharge services: Time spent: Greater than 30 minutes EXAM Constitutional Vitals: Temp Pulse Resp BP Pulse Ox 97.6 F 68 18 110/56 99 05/07/21 11:14 05/07/21 11:14 05/07/21 11:14 05/07/21 11:14 05/07/21 11:14 Discharge Data Data Completed and Pending Labs on day of discharge: Labs from last 24 hours 05/07/21 05/07/21 05/07/21 06:36 06:36 06:36 WBC 9.7 RBC 3.67 L Hgb 8.9 L Hct 30.6 L POC Hct MCV 83.4 MCH 24.3 L MCHC 29.1 L RDW 21.0 H Plt Count 100 L MPV Neut % (Auto) 82.4 H Lymph % (Auto) 11.3 L Bacon % (Auto) 5.9 Eos % (Auto) 0.3 Baso % (Auto) 0.1 Lymph # (Auto) 1.10 L Bacon # (Auto) 0.57 Eos # (Auto) 0.03 Baso # (Auto) 0.01 Absolute Neutrophils 8.01 H PT INR VBG Lactic Acid POC Sodium Sodium 140 POC Potassium Potassium 3.7 POC Chloride Chloride 111 H Carbon Dioxide 17 L POC Total CO2 Anion Gap 12.0 POC BUN BUN 55 H Creatinine 1.3 H POC Creatinine GFR Calculation 54 Glucose 169 H POC Glucose Uric Acid 11.2 H Calcium 8.0 L POC WB Ioniz Calcium Phosphorus 2.8 Magnesium 2.2 Total Bilirubin 1.4 H Direct Bilirubin 0.8 H GGT 21 AST 79 H ALT 144 H Alkaline Phosphatase 76 Lactate Dehydrogenase 362 H Total Creatine Kinase 1432 H CK-MB (CK-2) Troponin T Total Protein 5.2 L Albumin 3.0 L Globulin 2.2 Albumin/Globulin Ratio 1.4 Triglycerides 114 Urine Color Urine Appearance Urine pH Ur Specific [place] Urine Protein Urine Glucose (UA) Urine Ketones Urine Occult Blood Urine Nitrate Urine Bilirubin Urine Urobilinogen Ur Leukocyte Esterase Urine RBC Urine WBC Ur Squamous Epith Cells Urine Bacteria Urine Mucus Ur Culture Indicated? 05/06/21 05/06/21 05/06/21 21:10 20:21 17:58 WBC RBC Hgb Hct POC Hct 32 L 32 L MCV MCH MCHC RDW Plt Count MPV Neut % (Auto) Lymph % (Auto) Bacon % (Auto) Eos % (Auto) Baso % (Auto) Lymph # (Auto) Bacon # (Auto) Eos # (Auto) Baso # (Auto) Absolute Neutrophils PT INR VBG Lactic Acid POC Sodium 149 H 150 H Sodium POC Potassium 4.0 3.7 Potassium POC Chloride 117 H 120 H Chloride Carbon Dioxide POC Total CO2 16 L 16 L Anion Gap POC BUN 57 H 56 H BUN Creatinine POC Creatinine 1.7 H 1.7 H GFR Calculation Glucose POC Glucose 162 H 111 H Uric Acid Calcium POC WB Ioniz Calcium 1.09 L 1.08 L Phosphorus Magnesium Total Bilirubin Direct Bilirubin GGT AST ALT Alkaline Phosphatase Lactate Dehydrogenase Total Creatine Kinase CK-MB (CK-2) Troponin T Total Protein Albumin Globulin Albumin/Globulin Ratio Triglycerides Urine Color Valentine Urine Appearance Clear Urine pH 5.0 Ur Specific [place] 1.045 Urine Protein 30 A Urine Glucose (UA) Negative Urine Ketones 5 A Urine Occult Blood 0.03 Urine Nitrate Negative Urine Bilirubin Negative Urine Urobilinogen 4.0 A Ur Leukocyte Esterase Negative Urine RBC 0 Urine WBC 2 Ur Squamous Epith Cells < 1 Urine Bacteria None Urine Mucus Mod A Ur Culture Indicated? No 05/06/21 05/06/21 05/06/21 16:19 12:26 12:26 WBC RBC Hgb Hct POC Hct MCV MCH MCHC RDW Plt Count MPV Neut % (Auto) Lymph % (Auto) Bacon % (Auto) Eos % (Auto) Baso % (Auto) Lymph # (Auto) Bacon # (Auto) Eos # (Auto) Baso # (Auto) Absolute Neutrophils PT INR VBG Lactic Acid POC Sodium Sodium POC Potassium Potassium POC Chloride Chloride Carbon Dioxide POC Total CO2 Anion Gap POC BUN BUN Creatinine POC Creatinine GFR Calculation Glucose POC Glucose Uric Acid Calcium POC WB Ioniz Calcium Phosphorus Magnesium Total Bilirubin Direct Bilirubin GGT AST ALT Alkaline Phosphatase Lactate Dehydrogenase Total Creatine Kinase 1737 H CK-MB (CK-2) 17.5 H Troponin T 0.04 H* 0.05 H* Total Protein Albumin Globulin Albumin/Globulin Ratio Triglycerides Urine Color Urine Appearance Urine pH Ur Specific [place] Urine Protein Urine Glucose (UA) Urine Ketones Urine Occult Blood Urine Nitrate Urine Bilirubin Urine Urobilinogen Ur Leukocyte Esterase Urine RBC Urine WBC Ur Squamous Epith Cells Urine Bacteria Urine Mucus Ur Culture Indicated? 05/06/21 05/06/21 05/06/21 12:26 12:26 12:26 WBC RBC Hgb Hct POC Hct 30 L MCV MCH MCHC RDW Plt Count MPV Neut % (Auto) Lymph % (Auto) Bacon % (Auto) Eos % (Auto) Baso % (Auto) Lymph # (Auto) Bacon # (Auto) Eos # (Auto) Baso # (Auto) Absolute Neutrophils PT 22.1 H INR 1.8 H VBG Lactic Acid 2.4 H POC Sodium 150 H Sodium 149 H POC Potassium 4.0 Potassium 4.1 POC Chloride 120 H Chloride 113 H Carbon Dioxide 15 L POC Total CO2 16 L Anion Gap 21.0 H POC BUN 63 H BUN 61 H Creatinine 1.7 H POC Creatinine 1.9 H GFR Calculation 39 Glucose 117 H POC Glucose 121 H Uric Acid Calcium 8.6 POC WB Ioniz Calcium 1.09 L Phosphorus Magnesium Total Bilirubin 1.7 H Direct Bilirubin GGT AST 140 H ALT 198 H Alkaline Phosphatase 89 Lactate Dehydrogenase Total Creatine Kinase CK-MB (CK-2) Troponin T Total Protein 5.8 L Albumin 3.8 Globulin 2.0 L Albumin/Globulin Ratio 1.9 Triglycerides Urine Color Urine Appearance Urine pH Ur Specific [place] Urine Protein Urine Glucose (UA) Urine Ketones Urine Occult Blood Urine Nitrate Urine Bilirubin Urine Urobilinogen Ur Leukocyte Esterase Urine RBC Urine WBC Ur Squamous Epith Cells Urine Bacteria Urine Mucus Ur Culture Indicated? 05/06/21 12:26 WBC 10.4 RBC 3.78 L Hgb 9.1 L Hct 30.0 L POC Hct MCV 79.4 L MCH 24.1 L MCHC 30.3 L RDW 20.8 H Plt Count 125 L MPV 11.4 H Neut % (Auto) 86.3 H Lymph % (Auto) 8.6 L Bacon % (Auto) 5.0 Eos % (Auto) 0 Baso % (Auto) 0.1 Lymph # (Auto) 0.89 L Bacon # (Auto) 0.52 Eos # (Auto) 0 Baso # (Auto) 0.01 Absolute Neutrophils 8.97 H PT INR VBG Lactic Acid POC Sodium Sodium POC Potassium Potassium POC Chloride Chloride Carbon Dioxide POC Total CO2 Anion Gap POC BUN BUN Creatinine POC Creatinine GFR Calculation Glucose POC Glucose Uric Acid Calcium POC WB Ioniz Calcium Phosphorus Magnesium Total Bilirubin Direct Bilirubin GGT AST ALT Alkaline Phosphatase Lactate Dehydrogenase Total Creatine Kinase CK-MB (CK-2) Troponin T Total Protein Albumin Globulin Albumin/Globulin Ratio Triglycerides Urine Color Urine Appearance Urine pH Ur Specific [place] Urine Protein Urine Glucose (UA) Urine Ketones Urine Occult Blood Urine Nitrate Urine Bilirubin Urine Urobilinogen Ur Leukocyte Esterase Urine RBC Urine WBC Ur Squamous Epith Cells Urine Bacteria Urine Mucus Ur Culture Indicated? Discharge Plan Patient/Caregiver Discharge Instructions Activity: increase activity as tolerated Diet: Cardiac Activity Restrictions/Additional Instructions: Referral to see GI for liver disease work-up, suspected cirrhosis vs fatty liver Prescriptions: Continued atorvastatin 40 mg tablet 40 mg PO QDAY Qty: 30 RF: 3 clopidogrel 75 mg tablet 75 mg PO QDAY Qty: 30 RF: 3 aspirin [Adult Low Dose Aspirin] 81 mg tablet,delayed release (DR/EC) 81 mg PO QDAY RF: 0 acetaminophen [Tylenol Extra Strength] 500 mg tablet 500 mg PO .as needed RF: 0 Changed lisinopril 20 mg tablet 10 mg PO QDAY Qty: 30 RF: 2 Follow Up Plan Follow up with: Loetscher,Thalia A, CLINICAL EDUCATION COORDINATOR [Primary Care Provider] - Patient Disposition: Home Health Service Prognosis: Undetermined Overall status at discharge: patient is progressing back to baseline Discharge Orders: Discharge Order (Routine); Ordered 05/08/21 Ordered By: Etienne Machado [facility] VTE Deep Vein Thrombosis/Pulmonary Embolism Present on Admission: No
--- NOTE | 2021-05-07 15:04 | Ultrasound Report ---
CLINICAL INFORMATION: transaminitis, h/o etoh COMPARISON: None. FINDINGS: Liver is slightly decreased in size 13.5 cm in maximal dimension. Echotexture is heterogeneous elevated compatible fatty change or other diffuse hepatocellular process. No focal hepatic lesion appreciated. There is a 1 cm sludge ball in the the gallbladder. Gallbladder is otherwise normal-no evidence of wall thickening. Common bile duct is normal-3 mm. Pancreas unremarkable. IMPRESSION: 1 cm sludge ball in the gallbladder. The gallbladder is otherwise normal Hyperechoic inhomogeneous liver compatible with fatty change or other diffuse hepatocellular process Interpreted and Authenticated by: Miki Dickerson 05/07/21
--- NOTE | 2021-05-07 15:05 | Ultrasound Report ---
CLINICAL INFORMATION: evalauate size for potential diagnostic thorac COMPARISON: None. FINDINGS: Moderate right and small left pleural effusions are both anechoic simple effusions.. IMPRESSION: Moderate right and small left pleural effusions-simple Interpreted and Authenticated by: Miki Dickerson 05/07/21
[2021-05-07] MEDS ORDERED: OLANZapine 10 MG VIAL IM SCH (18:45)
[2021-05-07] MEDS ORDERED: OLANZapine 5 MG TABLET PO ONE ×2 (18:45→19:14)
[2021-05-07] MEDS ORDERED: OLANZapine 10 MG VIAL IM ONE (19:30)
[2021-05-07] MEDS ORDERED: HALOPERIDOL LACTATE 5 MG/ML VIAL IM ONE (21:27)
[2021-05-07] MEDS ORDERED: HALOPERIDOL LACTATE 5 MG/ML VIAL ONE (21:32)
[2021-05-07] MEDS: ATORVASTATIN 40 MG TABLET PO SCH (21:40)
[2021-05-08] MEDS: 0.9 % SODIUM CHLORIDE 10 ML SYRINGE IV SCH (04:46)
[2021-05-08 07:21] LABS: ALT/SGPT 137 U/L (<40); AST/SGOT 78 U/L (<40); Albumin 3.4 gm/dL (3.2-5.2); Albumin/Globulin Ratio 1.6 (1.0-2.3); Alkaline Phosphatase 89 U/L (39-117); Bilirubin,Direct 0.9 mg/dL (<0.3); Bilirubin,Total 1.8 mg/dL (0.1-1.0); Blood Urea Nitrogen 46 mg/dL (8-23); Calcium 8.4 mg/dL (8.6-10.4); Carbon Dioxide 21 mmol/L (22-30); Chloride 107 mmol/L (96-108); Globulin 2.1 gm/dL (2.2-3.7); Glomerular Filtration Rate 66; Glucose 99 mg/dL (70-105); Lactate Dehydrogenase 408 U/L (135-225); Phosphorous 2.2 mg/dL (2.5-4.5); Triglycerides 114 mg/dL (<150); Uric Acid 10.2 mg/dL (2.5-8.0)
[2021-05-08 07:22] LABS: Creatine Kinase 1359 U/L (24-195)
--- NOTE | 2021-05-08 08:14 | Internal Med Progress Note ---
SUBJECTIVE Subjective Patient information: Note initiated : 05/08/21 at 8:09 am Service Date, if different from initiated Date: [] Patient: Francis Tracey a 76 y/o M admitted on 05/06/21 for fall. Chief Complaint: [] Interval history: History of present illness: Mr. Tracey is a 76 year old M Patient found down at home on the floor by his daughter today 1030. It is thought that he been lying on the floor since last night. He was last seen by his neighbor on the porch at 7 PM. He does not recall falling the surrounding events did not feel ill recently feels in his normal state of health. Does not recall passing out or tripping or anything like that. Given the ED showed normal white blood cell count with a hemoglobin of 9.1. Platelets mildly low at 125. Chemistry showed a sodium of 149 chloride 113 bicarb of 15. BUN 61 creatinine 1.7. INR 1.8. No known history of liver disease although is used to drink quite a bit. CPK was elevated and lactate mildly elevated. Transaminitis mild. CT brain showed old infarcts. Patient lives alone. Per daughter he has lost weight and been declining over the last several months. He has moved from [place] recently to help care for him given his decline. He does not recall if he has been taking his medications or not and likely has not been taking per daughter. 05/07 No overnight event or new complaints. Patient feeling all right. Sodium improved creatinine improved. 05/08 Appears to be sundowning at night. Calm in bed currently. No complaints. Review of Systems: denies headache/fever/chills/nausea/vomiting/chest or abdominal pain/cough/dyspnea/diarrhea. Otherwise see above. Constitutional Vitals: Vital Signs Temp Pulse Resp BP Pulse Ox 97.7 F 101 H 20 122/62 100 05/08/21 07:00 05/08/21 07:00 05/08/21 07:00 05/08/21 07:00 05/08/21 07:00 Period Temp Pulse Resp BP Sys/Rene Pulse Ox Last 24 Hr 97.4 F-97.7 F 62-101 16-20 98-131/46-68 96-100 Intake and Output 05/07/21 05/08/21 05/08/21 21:59 05:59 13:59 Intake Total 1000 200 Balance 1000 200 Weight 48.489 kg Intake & Output: Intake & Output 05/07/21 05/08/21 05/08/21 21:59 05:59 13:59 Intake Total 1000 200 Balance 1000 200 Weight 48.489 kg Intake: IV 1000 Sodium Bicarbonate Vial 150 Meq 1000 In Dextrose 5% in Water 850 ml @ 100 mls/hr IV Q20H DAYSI Rx#: [id number] Oral 0 200 Other: # Voids 3 Exam: General: Alert, Awake, No acute Distress, , cachectic Eyes/N/T: EOMI, Head/Neck: neck supple, CV: RRR, 3/6 SM , Pulm: Clear b/l, no wheezing/rhonchi/rales Abd: soft, nontender, +BS x4 Ext: no clubbing/cyanosis/edema Neuro: Alert, no focal deficits, moves all extremities, Skin: warm/dry OBJ DATA Labs CBC & Chem 7: 05/08/21 05:27 05/08/21 05:27 Labs: Abnormal Lab Results 05/08/21 05/08/21 05/07/21 05:27 05:26 06:36 RBC Hgb Hct POC Hct MCV MCH MCHC RDW Plt Count MPV Neut % (Auto) Lymph % (Auto) Lymph # (Auto) Absolute Neutrophils PT INR VBG Lactic Acid POC Sodium Sodium POC Chloride Chloride Carbon Dioxide 21 L POC Total CO2 Anion Gap POC BUN BUN 46 H Creatinine POC Creatinine Glucose POC Glucose Uric Acid 10.2 H Calcium 8.4 L POC WB Ioniz Calcium Phosphorus 2.2 L Total Bilirubin 1.8 H Direct Bilirubin 0.9 H AST 78 H ALT 137 H Lactate Dehydrogenase 408 H Total Creatine Kinase 1359 H 1432 H CK-MB (CK-2) Troponin T Total Protein 5.5 L Albumin Globulin 2.1 L Urine Protein Urine Ketones Urine Urobilinogen Urine Mucus 05/07/21 05/07/21 05/06/21 06:36 06:36 21:10 RBC 3.67 L Hgb 8.9 L Hct 30.6 L POC Hct 32 L MCV MCH 24.3 L MCHC 29.1 L RDW 21.0 H Plt Count 100 L MPV Neut % (Auto) 82.4 H Lymph % (Auto) 11.3 L Lymph # (Auto) 1.10 L Absolute Neutrophils 8.01 H PT INR VBG Lactic Acid POC Sodium 149 H Sodium POC Chloride 117 H Chloride 111 H Carbon Dioxide 17 L POC Total CO2 16 L Anion Gap POC BUN 57 H BUN 55 H Creatinine 1.3 H POC Creatinine 1.7 H Glucose 169 H POC Glucose 162 H Uric Acid 11.2 H Calcium 8.0 L POC WB Ioniz Calcium 1.09 L Phosphorus Total Bilirubin 1.4 H Direct Bilirubin 0.8 H AST 79 H ALT 144 H Lactate Dehydrogenase 362 H Total Creatine Kinase CK-MB (CK-2) Troponin T Total Protein 5.2 L Albumin 3.0 L Globulin Urine Protein Urine Ketones Urine Urobilinogen Urine Mucus 05/06/21 05/06/21 05/06/21 20:21 17:58 16:19 RBC Hgb Hct POC Hct 32 L MCV MCH MCHC RDW Plt Count MPV Neut % (Auto) Lymph % (Auto) Lymph # (Auto) Absolute Neutrophils PT INR VBG Lactic Acid POC Sodium 150 H Sodium POC Chloride 120 H Chloride Carbon Dioxide POC Total CO2 16 L Anion Gap POC BUN 56 H BUN Creatinine POC Creatinine 1.7 H Glucose POC Glucose 111 H Uric Acid Calcium POC WB Ioniz Calcium 1.08 L Phosphorus Total Bilirubin Direct Bilirubin AST ALT Lactate Dehydrogenase Total Creatine Kinase CK-MB (CK-2) Troponin T 0.04 H* Total Protein Albumin Globulin Urine Protein 30 A Urine Ketones 5 A Urine Urobilinogen 4.0 A Urine Mucus Mod A 05/06/21 05/06/21 05/06/21 12:26 12:26 12:26 RBC Hgb Hct POC Hct MCV MCH MCHC RDW Plt Count MPV Neut % (Auto) Lymph % (Auto) Lymph # (Auto) Absolute Neutrophils PT INR VBG Lactic Acid 2.4 H POC Sodium Sodium POC Chloride Chloride Carbon Dioxide POC Total CO2 Anion Gap POC BUN BUN Creatinine POC Creatinine Glucose POC Glucose Uric Acid Calcium POC WB Ioniz Calcium Phosphorus Total Bilirubin Direct Bilirubin AST ALT Lactate Dehydrogenase Total Creatine Kinase 1737 H CK-MB (CK-2) 17.5 H Troponin T 0.05 H* Total Protein Albumin Globulin Urine Protein Urine Ketones Urine Urobilinogen Urine Mucus 05/06/21 05/06/21 05/06/21 12:26 12:26 12:26 RBC 3.78 L Hgb 9.1 L Hct 30.0 L POC Hct 30 L MCV 79.4 L MCH 24.1 L MCHC 30.3 L RDW 20.8 H Plt Count 125 L MPV 11.4 H Neut % (Auto) 86.3 H Lymph % (Auto) 8.6 L Lymph # (Auto) 0.89 L Absolute Neutrophils 8.97 H PT 22.1 H INR 1.8 H VBG Lactic Acid POC Sodium 150 H Sodium 149 H POC Chloride 120 H Chloride 113 H Carbon Dioxide 15 L POC Total CO2 16 L Anion Gap 21.0 H POC BUN 63 H BUN 61 H Creatinine 1.7 H POC Creatinine 1.9 H Glucose 117 H POC Glucose 121 H Uric Acid Calcium POC WB Ioniz Calcium 1.09 L Phosphorus Total Bilirubin 1.7 H Direct Bilirubin AST 140 H ALT 198 H Lactate Dehydrogenase Total Creatine Kinase CK-MB (CK-2) Troponin T Total Protein 5.8 L Albumin Globulin 2.0 L Urine Protein Urine Ketones Urine Urobilinogen Urine Mucus Meds: Medications Acetaminophen (Acetaminophen 325 Mg Tablet) 650 mg PO Q6HP PRN PRN Reason: PAIN/FEVER > 101 Albuterol/Ipratropium (Ipratropium/Albuterol 3 Ml Ampul.Neb) 3 ml NEB Q4HP PRN PRN Reason: Shortness Of Breath Atorvastatin Calcium (Atorvastatin 40 Mg Tablet) 40 mg PO HS [facility] Last Admin: 05/07/21 21:40 Dose: 40 mg Documented by: Clopidogrel Bisulfate (Clopidogrel 75 Mg Tablet) 75 mg PO DAILY [facility] Last Admin: 05/07/21 10:22 Dose: 75 mg Documented by: Docusate Sodium (Docusate Sodium 100 Mg Capsule) 100 mg PO BID [facility] Last Admin: 05/07/21 21:40 Dose: 100 mg Documented by: Enoxaparin Sodium (Enoxaparin 30 Mg/0.3 Ml Syringe) 30 mg SQ DAILY [facility] Last Admin: 05/07/21 10:22 Dose: 30 mg Documented by: Potassium Chloride 40 meq/ (Dextrose) 520 mls @ 130 mls/hr IV UD PRN PRN Reason: Potassium < 3 Magnesium Sulfate (Magnesium Sulfate) 2 gm in 50 mls @ 50 mls/hr IV UD PRN PRN Reason: Magnesium </= 1.6 Labetalol HCl (Labetalol 5 Mg/Ml Ml) 0 mg IV Q2HP PRN PRN Reason: Hypertension Lisinopril (Lisinopril 10 Mg Tablet) 10 mg PO DAILY [facility] Ondansetron HCl (Ondansetron 4 Mg/2 Ml Vial) 4 mg IV Q4HP PRN PRN Reason: Nausea And Vomiting Polyethylene Glycol (Polyethylene Glycol 3350 17 Gm Packet) 17 gm PO DAILYP PRN PRN Reason: Constipation Potassium Chloride (Potassium Chloride 20 Meq Tablet) 40 meq PO UD PRN PRN Reason: Potssium is 3-3.5 Potassium Chloride (Potassium Chloride 20 Meq Tablet) 40 meq PO UD PRN PRN Reason: Potassium < 3 Senna (Sennosides 1 Tablet) 2 tab PO DAILYP PRN PRN Reason: Constipation Sodium Chloride (0.9 % Sodium Chloride 10 Ml Syringe) 10 ml IV Q8 [facility] Last Admin: 05/08/21 04:46 Dose: Not Given Documented by: A/P Narrative A/P Narrative: A: *Fall/generalized weakness/deconditioning/self-care deficits: *Dehydration w/Hypernatremia: -resolved *Rhabdomyolysis: 2/2 fall and downtime -improving *GABE on CKD: 2/2 above -Improved *Med acidosis: 2/2 above -improving *Transaminitis, mild: improving -liver u/s with fatty liver *?liver dz suspected: h/o etoh abuse, thrombocytopenia/elevated INR/hyperbilirubinemia *PVD: Supposed to be on aspirin/statin/Plavix *h/o CVA, no residual deficits per patient: *Dementia and likely from previous CVA's/etoh -CT brain with moderate atrophy and chronic ischemic changes and old infarcts *Tobacco abuse: *HTN: supposed to be on Lisinopril and chlorthalidone * P: -Lost IV access, labs improved. -monitor uop/renal fxn -pending UA pH -echo, -Smoking cessation counseling -PT/OT -CM for placement -pt refuses SNF, will go home with daughter -ppx: lovenox Time Spent With Patient Time: Total time spent is greater than 50% in coordination of care (as documented) at patient's floor/unit and/or counseling patient: QUALITY VTE Deep Vein Thrombosis/Pulmonary Embolism Present on Admission: No
[2021-05-08] MEDS ORDERED: LISINOPRIL 10 MG TABLET PO SCH (09:00)
[2021-05-08] MEDS ORDERED: NICOTINE 21 MG PATCH TOPICAL SCH (09:00)
[2021-05-08 09:45] LABS: Basophils # (Auto) 0.01 K/mcL (0.00-0.20); Basophils % (Auto) 0.1 % (0.0-2.0); Eosinophils # (Auto) 0.06 K/mcL (0.00-0.70); Eosinophils % (Auto) 0.8 % (0.0-7.0); Hematocrit 27.3 % (41.0-55.0); Hemoglobin 8.2 g/dL (13.5-16.5); Lymphocytes # (Auto) 0.71 K/mcL (1.50-4.80); Lymphocytes % (Auto) 9.6 % (15.0-49.0); Mean Cell Volume 79.1 fL (80.0-100.0); Monocytes # (Auto) 0.36 K/mcL (0.10-0.90); Monocytes % (Auto) 4.9 % (1.0-12.0); Neutrophils % (Auto) 84.6 % (38.0-78.0); Platelet Count 88 K/mcL (140-440); RBC 3.45 M/mcL (4.50-5.90); Red Cell Distribution Width 20.6 % (11.5-14.5); WBC 7.4 K/mcL (4.5-11.0)
[2021-05-08] MEDS: CLOPIDOGREL 75 MG TABLET PO SCH (09:47)
[2021-05-08] MEDS: DOCUSATE SODIUM 100 MG CAPSULE PO SCH (10:22)
[2021-05-08] MEDS: ENOXAPARIN 30 MG/0.3 ML SYRINGE SQ SCH (10:22)
== END 2021-05-08 12:45 | disposition home health service (06) | DRG 565 ==
LOC: ED 12:00 → MEDSUR 19:04
PROVIDERS: ADMIT Internal Medicine; ATTEND Internal Medicine